=== PATIENT | male | born 1980 | race Caucasian/White ===

== ENCOUNTER 2023-08-26 12:11 | Emergency (ER) | payer SELFPAY ==
[2023-08-26 12:18] VITALS: BP 142/82; BP 143/80; PULSE 70; PULSE 82; RESP 15; TEMP 36.8; O2SAT 98; BMI 21.3
--- NOTE | 2023-08-26 12:40 | PC.NURSE ---
pt refused changeover. pt is calm. PA notified of pt's arrival in ED and his refusal to change. Security completed safety check at bedside.
--- NOTE | 2023-08-26 16:09 | ED_ITS ---
HPI - Overdose General Chief Complaint: Overdose Stated Complaint: FOUND UNRESP/NARCAN GIVEN BY HPD,ADM HEROIN USE Time Seen by Provider: 08/26/23 16:05 Source: patient Mode of arrival: EMS Limitations: no limitations History of Present Illness ED Provider: Dr. Syed Jaeger HPI Narrative: 43-year-old male with no significant past medical history who presents emergency department for evaluation of unintentional overdose. The patient states that he injects heroin 6-7 bags per day. He states that he injected 3 bags of [employer] Gangster -a brand of hearing that he has used in the past without any problems. He states he injects heroin daily. The patient was found unresponsive in a park. He was given 4 mg of intranasal Narcan. Patient immediately became awake and alert. Patient's had no complaints time my evaluation. He states he has not interested in getting into a drug treatment program and he does not want to talk to our crisis counselors. Related Data Allergies Allergy/AdvReac Type Severity Reaction Status Date / Time No Known Allergies Allergy Unverified 08/26/23 12:26 [No Known Allergies*] Review of Systems Review of Systems: Yes all other systems are reviewed and are negative [facility] Past Medical History [facility] Narrative: Social history: He denies tobacco, and alcohol use. He states that he injects heroin daily and uses anywhere from 6-7 bags. Social History Social History Advance Directives: No Advance Directives Information Provided: No Physical Exam Vital Signs: Vital Signs: Last Vital Signs Temp 98.2 F 08/26/23 12:18 Pulse 70 08/26/23 12:18 Resp 15 08/26/23 12:18 BP 142/82 H 08/26/23 12:18 Pulse Ox 98 08/26/23 12:18 O2 Del Method Room Air 08/26/23 12:18 BMI result Body Mass Index 21.3 Vital signs were normal. Exam: General: Awake, alert in no distress Head: Normocephalic, atraumatic EENT: PERRL, Lids normal, sclera normal, conjunctiva normal, nose normal , ears normal, throat without erythema or exudates Neck: Supple, no adenopathy Lung: breath sounds symmetric, no wheezing, rales or rhonchi Chest: symmetric movement, nontender Heart: regular rate and rhythm, normal S1, S2 no murmurs or rubs Abdomen: soft, non-tender, nondistended, normal bowel sounds Back: no vertebral tenderness, no CVAT Extremities: no deformities, moves all extremities symmetrically Neuro: Awake, alert, oriented, normal speech, cranial nerves intact, moves all extremities symmetrically Psych: Pleasant, cooperative Medical Decision Making Medical Decision Making MDM Narrative: 43-year-old male with history of opiate use disorder who presents emergency department for evaluation of unintentional overdose on heroin. The patient was found unresponsive in a park and was given intranasal Narcan. Patient has no complaints the time my evaluation. Patient's physical examination was unremarkable Differential diagnosis: ?Includes but is not limited to heroin overdose, fentanyl overdose Course: 16:18 The patient states that he has not interested in getting into a drug treatment detox program or getting started on Suboxone or methadone. He does not want to talk to our care team or financial wellness coach. The patient was observed in the emergency department for proximally 3-1/2 hours and during this time he was awake and alert and did not have any repeat narcosis. The patient was discharged home with intranasal Narcan. He was also given a pamphlet for [facility]. Admission/Observation Consideration of admission/observation: Escalation of care including admission/observation considered Prescription Management I considered prescription management with: Other (Intranasal Narcan take-home pack) Chronic Conditions Patient?s care impacted by: Other (Opiate use disorder) Discharge Plan Discharge Clinical Impression: Drug overdose Qualifiers: Encounter type: initial encounter Injury intent: accidental or unintentional Qualified Code(s): T50.901A - Poisoning by unspecified drugs, medicaments and biological substances, accidental (unintentional), initial encounter Patient Disposition: Home, Self-Care Additional Instructions: A significant amount of heroin is contaminated with fentanyl and xylazine-2 very dangerous drugs You should consider getting help from our comprehensive care clinic. If you change your mind you can return to the emergency department or or go to the clinic to get help. Your are being discharged home with intranasal Narcan. If you are going to continue to use heroin, you should make sure that there is a sober person with you that is not using drugs and that this person can administer intranasal Narcan in the event that you stop breathing. Follow-up with your doctor in 2 days. Please return to the emergency department if your symptoms get worse or if you develop any symptoms that are concerning to you. Print Language: [place]
[2023-08-26 16:25] VITALS: BP 142/82; PULSE 70; RESP 15; TEMP 36.8; O2SAT 98
[2023-08-26] MEDS: Naloxone HCl Nasal TAKE HOME 4 MG SPRAY 8 MG NOSTRILALT (16:25)
== END 2023-08-26 16:25 | disposition home or self-care (01) ==
PROVIDERS: Emergency Provider Emergency Medicine Emergency Medical Services
DX: T50.901A Poisoning by unspecified drugs, medicaments and biological substances, accidental (unintentional), initial encounter (principal); F11.90 Opioid use, unspecified, uncomplicated; F19.90 Other psychoactive substance use, unspecified, uncomplicated; Y92.9 Unspecified place or not applicable
CPT/HCPCS: 99283

== ENCOUNTER 2024-03-05 17:07 | Emergency (ER) | payer MEDICAID, SELFPAY ==
--- NOTE | 2024-03-05 17:39 | ED.CPR ---
HPI - CPR General Chief Complaint: Cardiac Arrest/CPR Stated Complaint: cardiac arrest Time Seen by Provider: 03/05/24 17:10 Source: EMS History of Present Illness ED Provider: blanco HPI narrative: 44 male brought in by EMS active CPR in progress. There was called to the home the patient lives, prior to finding him the patient had been seen awake and alert 10 minutes prior to the call to EMS. He was found by EMS unresponsive. [facility] responders arrived at the scene had pulse had spontaneous respiration, naloxone had been administered for suspected opioid overdose. ALS crew put the patient in a stair chair shortly after this he rested this is estimated to be approximately 16 30. Patient's initial rhythms asystole received a total of 7 of epinephrine EN route and had an eye gel LMA in place with copious dark secretions from the oropharynx. On arrival the patient had PA CPR was in progress with compressions via Catracho machine. The patient looked chronically ill pale had coffee-ground secretions coming from around the LMA had fixed dilated pupils he had profound edema and ecchymosis of the right forearm and hand and chronic appearing but quite severe edema chronic venous insufficiency and hyperpigmentation changes and excoriations and ulcerations of the feet bilaterally. Was poorly kempt. We continued CPR and I worked on stabilizing the airway which was quite difficult given the copious secretions. Eventually I was able to place an 8 0 with good continuous capnography reading. Patient continued with PA until he developed VFib at this time along with amiodarone, lidocaine, calcium we continued with epinephrine and dextrose boluses as he had low readings on glucometer. With the airway stabilized we moved to assess cardiac function which initially had some organized agonal activity with when PEA was present but with the VFib there was no fibrillation seen just simply no organized contractile activity or fibrillation of the cardiac muscle. We did continue with CPR for a few more cycles see the nursing note for details. At the time of 1 hour from initial arrest despite a perhaps fine VFib there was no evidence of organized myocardial movement there was thickening of blood within the cardiac chambers, there was no obvious actionable or reversible process ongoing and the likelihood of any favorable neurologic outcome was unlikely we ceased efforts complaint: found unresponsive Onset (ago): minute(s) Place: home Bystander CPR performed: No Related Data Allergies Allergy/AdvReac Type Severity Reaction Status Date / Time Unable to Assess Allergy Unverified 03/05/24 17:46 [facility] Social History Social History Advance Directives: No Advance Directives Information Provided: No Do you have a plan to hurt others: No Plan Physical Exam Vital Signs: Vital Signs: Last Vital Signs Temp 0 F L 03/06/24 08:13 Pulse 0 L 03/06/24 08:13 Resp 0 L 03/06/24 08:13 BP 00/00 L 03/06/24 08:13 Pulse Ox 0 L 03/06/24 08:13 BMI result Body Mass Index 21.3 Const: Other: EXAM: general: Unresponsive pale chronically ill-appearing no obvious external signs of trauma acutely however there is edematous right upper extremity with ecchymosis of the hand chronic changes and ulcerations of the feet he is unkempt and very thin torso Head: Atraumatic Eyes: Anicteric, pale conjunctiva. Fixed dilated pupils. Evidence of temporal wasting ENT: on arrival LMA in place with copious coffee-ground secretions . Neck: Supple. Engorged neck veins 18 gauge IV present in the right EJ Respiratory: no spontaneous breathing. Limited exam due to Catracho device performing compressions but there is a deformed anterior chest expected with compressions and some crepitus anteriorly. Cardiovascular: Pulseless. Severe edema of the right forearm and hand with ecchymosis. Severe bilateral chronic appearing edema with skin changes including ulcerations bilateral feet left upper extremity unremarkable Abdominal: thin, no distention or signs of trauma : circumcised penis normal scrotum no swelling or hernias back: No evidence of penetrating blunt trauma or ecchymosis Medical Decision Making Medical Decision Making MDM Narrative: 44 mail as above described arrived in initially EMS describing a systolic arrest possible secondary to an opioid overdose with ineffective and naloxone administration. On arrival here PE AAA with only agonal cardiac activity on echocardiogram. Airway protected shortly after arrival see procedure note. Continued compression with aggressive resuscitation. Patient has above-described developed VFib and which was refractory to defibrillation x2, amiodarone lidocaine and other efforts. Resuscitation futility as described above. No evidence of trauma. No labs drawn or other testing done. Meds per nursing arrest note briefly summarized but not comprehensively described below Epinephrine, calcium chloride, dextrose, amiodarone, lidocaine, naloxone, Patient was accepted by the [facility] staff member GLORIA CARCAMO #[id number] Ramon was made aware of the , the patient's mother was made aware of the by [place] police I spoke to the [id number] who has been renting a room to him nearby Rose Moreira she also came to the hospital to see patient after his expiration Independent Interpretation I performed an independent interpretation of an: Rhythm Strip Interpretation: initially PE narrow complex looks somewhat irregular Later ventricular fibrillation Radiology Impression Radiologist Impression: EMERGENCY ULTRASOUND INTERPRETATION-Limited Echocardiography initial on arrival: [This study was ordered, performed, and interpreted by myself. The study reveals: Impression: Agonal but organized. No pericardial effusion. Initially no suggestion of RV dilation [Emergent Cardiac for Indication: Views Used: PLAX, A4, SX Pericardial Effusion/Tamponade Findings: NONE RV Dilation (> LV diam in 4ch apical): NONE Global LV Fxn: agonalIVC Dilation and Resp Variation: NORMAL Performed by: MD Keke Images were stored on EMR through [employer] image [employer] software. CPT:91248] repeat focused echo approximately 10 minutes to 20 minutes later: no organized cardiac activity of the myocardium. Some flickering of the tricuspid valve. No fibrillation noted. No pericardial effusion. EMERGENCY ULTRASOUND INTERPRETATION-Point of Care Trauma (FAST) Limited Abdominal+Chest Ultrasound [This study was ordered, performed, and interpreted by myself. The study reveals: Impression: -Peritoneum: NO FREE FLUID -Pleural space: POSITIVE LUNG SLIDING, NOT CONSISTENT WITH PNEUMOTHORAX.] [Indication: cardiac arrest -Mechanism: unknown -Type: unknown Fluid (FAST Views): -Hepatorenal: NEGATIVE -Perisplenic: NEGATIVE -Retrovesical/Pelvic: NEGATIVE - Other views: -Right Pleural 2ICS: POSITIVE SLIDING -Left Pleural 2ICS: POSITIVE SLIDING Performed by: Channing Davies MD Images were stored on EMR through [employer] image [employer] software. CPT: 18886,[id number]] Social Determinants Patient?s care significantly limited by Social Determinants of Health including: Alcoholism and drug addiction in family Procedures Intubation Intubation Type:: Emergency Endotracheal Intubation Time out performed: Yes sedative: none Laryngoscope: fiber optic video scope ET Tube Size: 8 ET Tube Uncuffed: Yes Tube Placement Confirmation: visualized tube passing through cords, equal breath sounds bilaterally and confirmation by capnometry Patient Tolerated Procedure: no complications Intubation Complications: none Critical Care Time Critical Care Time Critical Care Time: Yes Total Critical Care Time: 30 Attestation: ED Critical Care: Authorized and Performed by: Channing Davies MD Total critical care time: Approximately { 30 } Due to a high probability of clinically significant, life threatening deterioration, the patient required my highest level of preparedness to intervene emergently and I personally spent this critical care time directly and personally managing the patient. This critical care time included obtaining a history; examining the patient; pulse oximetry; ordering and review of studies; arranging urgent treatment with development of a management plan; evaluation of patient's response to treatment; frequent reassessment; and, discussions with other providers. This critical care time was performed to assess and manage the high probability of imminent, life-threatening deterioration that could result in multi-organ failure. It was exclusive of separately billable procedures and treating other patients and teaching time. Discharge Plan Discharge Clinical Impression: Cardiac arrest Patient Disposition: Interventions: [facility]or Nursing Doc/Post Mortem care Last Done: 03/05/24 20:11 ED Discharge Assessment Last Done: 03/06/24 08:13 Discharge Date/Time: 03/05/24 19:30 Date/Time: 03/05/24 17:31
[2024-03-05 17:41] VITALS: BMI 21.3
--- NOTE | 2024-03-05 17:43 | PC.RT ---
Pt came in via EMS CPR in progress. Pt had Igel established and was being bag valve ventilated with 100% O2 by guard dance hall. RT took over bagging on transfer to ER bed. ACLS care was given by ER staff led by . attempted intubated x2 with success on second attempt with an 8.0 ETT 28@lip. Tube confirmed with etco2 monitoring, auscultation of bilateral breath sounds and equal chest rise. ETT and pt mouth quickly became filled with blood, stool and other body fluids. RT x2 continuously suctioned endotracheally and orally. ACLS care continued to be provided while RTs suctioned and bag ventilated pt. called TOD. ETT remained in place.
--- NOTE | 2024-03-05 18:04 | PC.NURSE ---
[facility] called at this time - spoke jarett Bhatti (Clinical Coordinator). No staff to relay medication information with available at this time - call back number provided.
--- NOTE | 2024-03-05 18:25 | MHC.EDTECH ---
Patient POC Lo x2. Results given go [facility].
--- NOTE | 2024-03-05 18:41 | PC.NURSE ---
Attempted to call [facility] x 2. Per Denae at [facility], Fish Bin Tender is not available at this time - phone number provided for call back.
--- NOTE | 2024-03-05 19:25 | MHC.EDTECH ---
Addendum entered by Libra Barth 03/05/24 19:29: [place] staff member spoken to - Annelise hCoudhary Original Note: Contacted ME @[phone] per request of Channing Hung MD. Pt demographics given then call taked by provider.
--- NOTE | 2024-03-05 20:10 | PC.NURSE ---
This RN attempted to call [facility] once more at 20:10. [facility] declined pt. Ref # [id number]. community youth secretary hj made aware
[2024-03-06 08:13] VITALS: BP 00/00; PULSE 0; RESP 0; TEMP -17.7; TEMP 0; O2SAT 0
[2024-03-11 09:09] LABS: Glucose, Whole Blood < 10 mg/dL (60-115)
== END 2024-03-05 19:30 | disposition expired ==
PROVIDERS: Emergency Provider Emergency Medicine
DX: I46.9 Cardiac arrest, cause unspecified (principal); R60.1 Generalized edema; R60.0 Localized edema; L97.529 Non-pressure chronic ulcer of other part of left foot with unspecified severity; L97.519 Non-pressure chronic ulcer of other part of right foot with unspecified severity
CPT/HCPCS: 31500; 82947; 99283; 99285; J0153; J0171; J0282; J2003; J2310